=== PATIENT | male | born 1930 | race Caucasian/White ===

== ENCOUNTER 2020-03-09 10:14 | Emergency (ER) | payer MEDICARE, MEDICAID ==
[~2020-03-09] VITALS: Ht 152.4 cm; Wt 66.0 kg
[2020-03-09] MEDS ORDERED: CARV3.12 PO (11:24)
[2020-03-09] MEDS ORDERED: SODI1TAB12 PO (11:24)
[2020-03-09] MEDS ORDERED: PRESCAP PO (11:24)
[2020-03-09] MEDS ORDERED: ASPI1TAB22 PO (11:24)
[2020-03-09] MEDS ORDERED: [UNRECOGNIZED DRUG - CODE] TOP (11:24)
[2020-03-09] MEDS ORDERED: OMEP20TA9 PO (11:24)
[2020-03-09] MEDS ORDERED: DOK1CAP7 PO (11:24)
[2020-03-09] MEDS ORDERED: NYST1POW9 TOP (11:24)
[2020-03-09] MEDS ORDERED: ENSULIQ8 PO (11:24)
[2020-03-09] MEDS ORDERED: ALBU83IN INH (11:24)
[2020-03-09] MEDS ORDERED: FURO40TA2 PO (11:24)
[2020-03-09] MEDS ORDERED: SIME125T PO (11:24)
[2020-03-09] MEDS ORDERED: REFR0.5D8 OU (11:24)
[2020-03-09] MEDS ORDERED: ANTI2TAB16 PO (11:24)
[2020-03-09 11:36] LABS: HEMATOCRIT 37.5 % (42.0-52.0); MEAN CORPUSCULAR HEMOGLOBIN 31.4 pg (27.0-33.0); MEAN CORPUSCULAR HGB CONC 34.7 g/dl (32.0-36.5); MEAN CORPUSCULAR VOLUME 90.6 fl (80.0-96.0); PLATELET COUNT, AUTOMATED 166 10^3/uL (150-450); RED BLOOD COUNT 4.14 10^6/uL (4.30-6.10); WHITE BLOOD COUNT 4.9 10^3/uL (4.0-10.0)
[2020-03-09 12:06] LABS: AMPHETAMINES LEVEL URINE NEGATIVE (NEGATIVE); BARBITURATES URINE NEGATIVE (NEGATIVE); BENZODIAZEPINES URINE NEGATIVE (NEGATIVE); CANNABINOIDS URINE NEGATIVE (NEGATIVE); COCAINE METABOLITE URINE NEGATIVE (NEGATIVE); METHADONE URINE NEGATIVE (NEGATIVE); OPIATES URINE NEGATIVE (NEGATIVE); PHENCYCLIDINE URINE NEGATIVE (NEGATIVE)
[2020-03-09 12:21] LABS: ACETAMINOPHEN LEVEL < 2.0 UG/ML (10.0-30.0); ALBUMIN 3.5 GM/DL (3.2-5.2); ALT/SGPT 17 U/L (12-78); BILIRUBIN,DIRECT 0.2 MG/DL (0.0-0.2); BILIRUBIN,TOTAL 0.9 MG/DL (0.2-1.0); BLOOD UREA NITROGEN 25 MG/DL (7-18); CALCIUM LEVEL 8.8 MG/DL (8.8-10.2); CARBON DIOXIDE LEVEL 28 MEQ/L (21-32); CHLORIDE LEVEL 105 MEQ/L (98-107); CREATININE FOR GFR 1.23 MG/DL (0.70-1.30); ETHYL ALCOHOL (ETHANOL) 0.003 % (0.000-0.010); GLUCOSE, FASTING 127 MG/DL (70-100); POTASSIUM SERUM 3.5 MEQ/L (3.5-5.1); SALICYLATE LEVEL < 1.7 MG/DL (5.0-30.0); SODIUM LEVEL 139 MEQ/L (136-145); TOTAL PROTEIN 6.5 GM/DL (6.4-8.2)
--- NOTE | 2020-03-09 15:14 | ED PDOC ---
Provider Note called about patient, the patient is a demented elderly man who made concerning statements at assisted living, appears to have poor short term memory by report and is currently denying SI, appears to have some mild depressive an anxiety symptoms, no psych hx or treatment has an intake next week scheduled for MH. The patient wants to leave, no current ideation makes it difficult to argue for invol treatment especially with no history of treatment, assisted living contacted safety plan discussed and educated as well as starting patient on 25mg of sertraline as recommended for the symptoms in dementia/depressive symptoms, will follow up with MH next week. LUIS ENRIQUE NUÑEZ DO Mar 09, 2020 15:14
[2020-03-09] MEDS ORDERED: SERT25TA85 PO ×2 (15:33→16:24)
[2020-03-09 17:08] VITALS: BP 128/71
== END 2020-03-09 17:13 | disposition home or self-care (01) ==
LOC: M ED 10:14 → EDBD 10:14 → M ED 17:13
DX: F33.9 Major depressive disorder, recurrent, unspecified (principal); I11.0 Hypertensive heart disease with heart failure; I50.9 Heart failure, unspecified; K21.9 Gastro-esophageal reflux disease without esophagitis; Z79.899 Other long term (current) drug therapy; Z79.82 Long term (current) use of aspirin
CPT/HCPCS: 36415; 80048; 80076; 80307; 84443; 85027; 99284; G0480